=== PATIENT | male | born 1950 ===

== ENCOUNTER 2021-09-04 20:19 | Emergency (ER) | payer MEDICARE, OTHER ==
[2021-09-04] MEDS: Diphtheria,Pertussis(Acell),Tetanus Vaccine 0.5 ML Syringe IM ONE (20:32)
[2021-09-04] MEDS: Lidocaine 1% 30 ML SDV INJECT ONE (20:32)
[2021-09-04] MEDS: Bacitracin Oint 1 GM U/D Packet TOP ONE (20:47)
== END 2021-09-04 20:51 | disposition home or self-care (01) ==
LOC: DL.ED 20:19
DX: S50.852A Superficial foreign body of left forearm, initial encounter (principal); Z23 Encounter for immunization; W45.8XXA Other foreign body or object entering through skin, initial encounter
CPT/HCPCS: 90471; 90715; 99282; 99283